=== PATIENT | female | born 1940 | race Caucasian/White ===

== ENCOUNTER → 2016-10-19 | Outpatient (CLI) | payer MEDICARE, BC ==
[~2016-10-19] MED LIST: ALIGN4 MG PO; ASPIRIN EC81 MG PO; CAPECITABINE500 MG PO; CELLCEPT250 MG PO; COMPAZINE10 MG PO; MIRALAX17 GM PO; PRED FORTE 1%5 ML OPHTH; PROGRAF0.5 MG PO; SIMBRINZA 1%-0.28 ML OPHTH
[2016-10-19 04:59] LABS: HEMATOCRIT 40.2 % (33.0-46.0); HEMOGLOBIN 13.4 g/dL (10.0-15.0); MCH 30.5 pg (27.0-34.0); MCHC 33.3 gm/dL (32.0-36.5); MCV 91.4 fl (83.0-98.0); RBC 4.4 M/uL (3.50-5.50); RDW-CV 14.6 % (11.9-14.6); WBC 4.4 K/uL (4.0-11.0)
[2016-10-19 05:09] LABS: ALBUMIN 3.2 gm/dL (3.5-5.0); ALK PHOS 71 IU/L (33-138); ALT 18 IU/L (12-78); ANION GAP 15.8 (10.0-19.0); AST 25 IU/L (10-40); BLOOD UREA NITROGEN 11 mg/dL (6-24); CALCIUM 8.5 mg/dL (8.5-10.5); CHLORIDE 105 mMol/L (96-110); CO2 21 mMol/L (22-32); CREATININE 0.7 mg/dL (0.5-1.1); ESTIMATED GFR (MDRD EQUATION) > 60; POTASSIUM 3.8 mMol/L (3.7-5.1); SODIUM 138 mMol/L (135-145); TOTAL BILIRUBIN 0.4 mg/dL (0.0-1.5)
== END | disposition disaster alternative care site (69) ==
LOC: LKUC 04:39
PROVIDERS: Internal Medicine Hematology & Oncology
DX: C20 Malignant neoplasm of rectum (principal)

== ENCOUNTER → 2016-10-30 | Outpatient (CLI) | payer MEDICARE, BC | END | disposition disaster alternative care site (69) | LOC: GRAD 13:17 | DX: C20 Malignant neoplasm of rectum (principal); J84.10 Pulmonary fibrosis, unspecified; J98.11 Atelectasis; I70.90 Unspecified atherosclerosis; R91.8 Other nonspecific abnormal finding of lung field ==

== ENCOUNTER → 2017-02-14 | Day surgery (SDC) | payer MEDICARE, BC | LOC: GOPD 02-12 | DX: Z08 Encounter for follow-up examination after completed treatment for malignant neoplasm (principal); Z94.0 Kidney transplant status; Z85.048 Personal history of other malignant neoplasm of rectum, rectosigmoid junction, and anus; Z88.2 Allergy status to sulfonamides; Z88.6 Allergy status to analgesic agent; Z79.899 Other long term (current) drug therapy; Z79.82 Long term (current) use of aspirin | CPT/HCPCS: J2001; J7030 ==